=== PATIENT | female | born 1960 | race Caucasian/White ===

== ENCOUNTER 2018-07-02 17:08 | Emergency (ER) | payer OTHER ==
--- NOTE | 2018-07-02 17:37 | EDPHY ---
H & P Stated Complaint: fell trail running on [facility]/facial trauma l ankle injury/ denies loc or ne Time Seen by Provider: 07/02/18 17:19 HPI/ROS: CHIEF COMPLAINT: Facial injury, left ankle injury HISTORY OF PRESENT ILLNESS: 58-year-old female generally healthy, no anticoagulant use, arrives via private vehicle. She is not a pre-hospital trauma activation. Patient reports that she was trail running on [facility], sustained a mechanical fall causing her to trip and impacted her right zygomatic arch against a tree and rolled her left ankle. She was unable to bear weight. She necessitated rescue by [facility]. PCP: Can REVIEW OF SYSTEMS: 10 systems reviewed and negative with the exception of the elements mentioned in the history of present illness PAST MEDICAL/SURGICAL HISTORY: no anticoagulant use, no relevant medical/ surgical history. Tetanus up-to-date SOCIAL HISTORY: denies alcohol use at time of incident PHYSICAL EXAM 1) GENERAL: Well-developed, well-nourished, alert and oriented. Appears to be in no acute distress. Answering questions appropriately. 2) HEAD: Normocephalic, atraumatic 3) HEENT: Pupils equal, round, reactive to light bilaterally. Ecchymosis, abrasion right 2nd metacarpal chin. No proptosis. Extraocular movements do not elicit abnormal gaze or diplopia. Negative Horners. Nasopharynx, oropharynx , clear. No deformity or angulation of nose. No septal hematoma. No rhinorrhea. No oral trauma. Ears bilaterally with normal tympanic membranes. No hemotympanum. No fluid or blood in the external auditory canal. No raccoon eyes. No Wetzel sign. Teeth are normally aligned with no gross malocclusion, TMJ bilaterally nontender, facial bones nontender including the zygomatic arch, maxilla mandible. 4) NECK: No cervical collar is on. Posterior cervical spine is nontender, no stepoff, no effusion. Full range of motion which does not elicit any midline cervical spine pain, no posterior midline tenderness, no step-off. 5) LUNGS: Clear to auscultation bilaterally, no wheezes, no rhonchi, no retractions. No obvious signs of trauma. No chest wall pain. No flaring, no grunting. Moving symmetrically. No crepitus. 6) HEART: [Regular rate and rhythm, 7) ABDOMEN: No guarding, no rebound, no focal tenderness, no peritoneal signs, no signs of trauma, no ecchymosis 8) MUSCULOSKELETAL: Left lower extremity: Soft tissue swelling edema to the bilateral malleoli. Soft compartments. Proximal tibia and fibular nontender. Foot including 5th metatarsal nontender. DP PT pulses present and brisk. Capillary refill is brisk less than 2 sec homes. Otherwise, Moving all extremities, no focal areas of tenderness, no obvious trauma. 9) BACK: No midline vertebral tenderness, no fluctuance, no step-off, no obvious trauma, no visual or palpable abnormality. 10) SKIN: No laceration. DIFFERENTIAL DIAGNOSIS: Not necessarily in any particular order, my differential diagnosis includes, but is not limited to, concussion, skull fracture, intraparenchymal contusion, subarachnoid, subdural and epidural hematoma. The patient understands that this diagnosis is provisional and can never be 100% accurate. 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 - Social History Smoking Status: Never smoked Constitutional: Initial Vital Signs Temperature (C) 37.1 C 07/02/18 17:14 Heart Rate 84 07/02/18 17:14 Respiratory Rate 18 07/02/18 17:14 Blood Pressure 130/75 H 07/02/18 17:14 O2 Sat (%) 99 07/02/18 17:14 O2 Delivery Mode Room Air Allergies/Adverse Reactions: No Known Allergies Allergy (Verified 07/02/18 17:13) Home Medications: Medication Instructions Recorded NO HOME MEDICATIONS 10/05/10 Hydrocodone/APAP 5/325 [Spurger 1 tab PO Q6 PRN #10 tab 07/02/18 5/325 (RX)] Medical Decision Making - Diagnostics Imaging Results: Imaging Impressions Ankle X-Ray 07/02/18 17:26 Impression: Bimalleolar left ankle fracture. Cervical Spine CT 07/02/18 17:26 Impression: 1. 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 Results called to Stalin Escamilla PA-C, at 6:[address] 07/02/18 17:26 Impression: Negative noncontrast CT of the brain. Results called to. Stalin Escamilla PA-C, at 6:10 PM at the time of the interpretation. Tibia/Fibula X-Ray 07/02/18 18:17 Impression: 1. Bimalleolar left ankle fracture, without proximal left tibia or fibular fracture identified. Procedures: Procedure: Splint A 3 way above the knee Ortho Glass splint was applied by ER electrocardiogram technician. After application of the splint I returned and re-examined the patient. The splint was adequately immobilizing the joint and distal to the splint the patient's circulation and sensation were intact. Patient shows no signs of compartment syndrome. Was given orthopedic precautions. Procedure crutch ED Course/Re-evaluation: 5:34 p.m.: Head CT ordered in this patient for trauma for the following indication: Fall greater than 3 feet. Will also obtain imaging of her C-spine and her left ankle. Care of patient under supervision of secondary supervising physician Dr Francisco . 7:06 p.m.: Patient re-evaluated with serial examinations. Had a lengthy discussion with the patient. Provided her compartment syndrome precautions and instructed. Doubt compartment syndrome at this time although the importance of observing for red flag signs of symptoms have been stressed on numerous instances. Today is Tuesday. She will contact her [place] physician tomorrow morning. Discharged home with analgesia. Informed that she may necessitate surgical intervention however this is not need to occur on an emergent basis. She and feel comfortable being discharged. Departure - Departure Disposition: Home, Routine, Self-Care Clinical Impression: Hiking on level or elevated terrain Bimalleolar fracture of left ankle Qualifiers: Encounter type: initial encounter Fracture type: closed Qualified Code(s): S82.842A - Displaced bimalleolar fracture of left lower leg, initial encounter for closed fracture Head injury due to trauma Qualifiers: Encounter type: initial encounter Qualified Code(s): S09.90XA - Unspecified injury of head, initial encounter Condition: Good Instructions: Ankle Fracture (ED), Head Injury (ED) Additional Instructions: ALTHOUGH THERE IS NO EVIDENCE OF SERIOUS HEAD INJURY AT THIS TIME, DELAYED SIGNS CAN APPEAR 24 TO 48 HOURS AFTER INJURY. PLEASE RETURN TO THE EMERGENCY DEPARTMENT (ED) IMMEDIATELY IF YOU HAVE INCREASED HEADACHE, PERSISTENT HEADACHE , VOMITING, WEAKNESS, CONFUSION OR VISUAL PROBLEMS. WE RECOMMEND THAT YOU DO NOT RESUME CONTACT SPORTS OR ACTIVITIES THAT TAKE COORDINATION OR BALANCE SUCH SKIING OR RIDING A BICYCLE UNTIL CLEARED TO DO SO BY YOUR DOCTOR OR BY A NEUROLOGIST. Return to the ER immediately if you experience discoloration, have worsening pain, numbness, tingling, or any other symptoms that concern you. If you received x-rays in the emergency department today, be advised, that ligamentous , tendon, muscular, and other non-bony injury cannot be fully ruled out. Try to keep your affected extremity elevated above the level of your chest, and keep cold packs on the affected area, for the next 48 hours. Referrals: [facility] [Provider Group] - As per Instructions (Tomorrow, call your [place] physician and tell them you have a broken ankle and you need to be seen by an orthopedic surgeon.) Prescriptions: Hydrocodone/APAP 5/325 [Spurger 5/325 (RX)] 1 tab PO Q6 PRN #10 tab PRN Reason: Pain, Severe
[2018-07-02 19:31] VITALS: BP 109/75
== END 2018-07-02 19:24 | disposition home or self-care (01) ==
PROC: 2W3RX1Z Immobilization of Left Lower Leg using Splint (ICD-10-PCS; principal; 2018-07-02)
DX: S82.842A Displaced bimalleolar fracture of left lower leg, initial encounter for closed fracture (principal); S09.90XA Unspecified injury of head, initial encounter; W01.198A Fall on same level from slipping, tripping and stumbling with subsequent striking against other object, initial encounter; Y93.02 Activity, running; Y92.828 Other wilderness area as the place of occurrence of the external cause; Y99.9 Unspecified external cause status